=== PATIENT | male | born 1990 | race Hispanic/Latino ===

== ENCOUNTER 2017-03-31 18:15 | Emergency (ER) | payer SELFPAY ==
[2017-03-31 18:34] VITALS: BMI 22.3
--- NOTE | 2017-03-31 18:38 | ED PDOC ---
Arrival/HPI - General Chief Complaint: Psychiatric Evaluation Time Seen by Provider: 03/31/17 18:28 Historian: Patient, Police - History of Present Illness Time/Duration: Prior to Arrival Symptom Onset: Gradual Symptom Course: Unchanged Associated Symptoms (Text): 03/31/17 18:36 Patient reports that he stole from his roommate and was afraid to go back to his house and was drinking and sending email to his aunt in [place] with suicidal intentions. The aunt called the local police who brought him to the emergency department. Patient was drinking again today. He states that he did this for attention, but has no intention of hurting himself. Family/Social History - Physician Review Nursing Documentation Reviewed: Yes Family/Social History: Unknown Family HX Smoking Status: Heavy Smoker > 10 Cigarettes Daily Hx Alcohol Use: Yes Hx Substance Use: No Allergies/Home Meds Allergies/Adverse Reactions: Allergies No Known Allergies Allergy (Verified 03/31/17 18:31) Home Medications: Home Meds Medication Instructions Recorded Confirmed No Known Home Med 03/31/17 03/31/17 Review of Systems - Physician Review All systems were reviewed & negative as marked: Yes - Review of Systems Constitutional: Normal Respiratory: Normal Cardiovascular: Normal Gastrointestinal: Normal Physical Exam Vital Signs Pulse Resp BP Pulse Ox 03/31/17 20:16 80 18 144/91 H 97 Temperature: Afebrile Blood Pressure: Normal Pulse: Regular Respiratory Rate: Normal Appearance: Positive for: Well-Appearing, Non-Toxic, Comfortable, Other (Smells of alcohol) Pain Distress: None Mental Status: Positive for: Alert and Oriented X 3 - Systems Exam Head: Present: Atraumatic, Normocephalic Pupils: Present: PERRL Extroacular Muscles: Present: EOMI Conjunctiva: Present: Normal Mouth: Present: Moist Mucous Membranes Pharnyx: No: ERYTHEMA, EXUDATE, TONSILS ENLARGED Neck: Present: Normal Range of Motion Respiratory/Chest: Present: Clear to Auscultation, Good Air Exchange. No: Respiratory Distress, Accessory Muscle Use Cardiovascular: Present: Regular Rate and Rhythm, Normal S1, S2. No: Murmurs Abdomen: Present: Normal Bowel Sounds. No: Tenderness, Distention, Peritoneal Signs Back: Present: Normal Inspection Upper Extremity: Present: Normal Inspection. No: Cyanosis, Edema Lower Extremity: Present: Normal Inspection. No: Edema Neurological: Present: GCS=15, CN II-XII Intact, Speech Normal, Motor Func Grossly Intact Skin: Present: Warm, Dry, Normal Color. No: Rashes Psychiatric: Present: Alert, Oriented x 3, Normal Insight, Normal Concentration , Depressed Mood, Intoxicated Medical Decision Making ED Course and Treatment: 03/31/17 20:05 EKG shows normal sinus rhythm rate approximately [address] or T-wave changes 03/31/17 22:21 Care of this patient was endorsed to the night emergency department physician , waiting for crisis evaluation and final disposition 03/31/17 22:27 Crisis has finished his evaluation and spoke with the psychiatrist and he will be discharged home to follow-up as an outpatient with substance abuse as the diagnosis. - Lab Interpretations Lab Results: 03/31/17 19:00 03/31/17 19:00 Lab Results 03/31/17 19:00: Alcohol, Quantitative 191 H 03/31/17 19:00: Salicylates < 1 L, Acetaminophen < 10.0 L 03/31/17 19:00: Sodium 143, Potassium 4.0, Chloride 104, Carbon Dioxide 23, Anion Gap 20, BUN 10, Creatinine 0.9, Est GFR ( Amer) > 60, Est GFR (Non- Af Amer) > 60, Random Glucose 88, Calcium 9.7, Total Bilirubin 0.5, AST 37, ALT 39, Alkaline Phosphatase 88, Total Protein 8.2, Albumin 4.8, Globulin 3.4, Albumin/Globulin Ratio 1.4 03/31/17 19:00: WBC 6.7, RBC 5.04, Hgb 16.6, Hct 45.3, MCV 89.9, MCH 32.9, MCHC 36.6, RDW 12.1, Plt Count 228, MPV 9.5, Gran % 63.7, Lymph % (Auto) 25.0, Dickinson % (Auto) 8.6 H, Eos % (Auto) 2.1, Baso % (Auto) 0.6, Gran # 4.29, Lymph # 1.7, Dickinson # 0.6, Eos # 0.1, Baso # 0.04 - RAD Interpretation Radiology Orders: 03/31/17 18:35 CHEST PORTABLE [RAD] Stat Disposition/Present on Arrival - Present on Arrival Any Indicators Present on Arrival: No History of DVT/PE: No History of Uncontrolled Diabetes: No Urinary Catheter: No History of Decub. Ulcer: No - Disposition Have Diagnosis and Disposition been Completed?: Yes Diagnosis: Substance abuse Disposition: HOME/ ROUTINE Disposition Time: 22:28 Patient Plan: Discharge Condition: GOOD Discharge Instructions (ExitCare): Abuse of Alcohol (ED), Polysubstance Abuse ( ED) Referrals: PCP,NO [Primary Care Provider] - Follow up with primary
[2017-03-31 19:21] LABS: BASO # 0.04 K/mm3 (0.0-2.0); BASO % 0.6 % (0.0-3.0); EOS # 0.1 (0.0-0.7); EOS % 2.1 % (1.5-5.0); GRAN # 4.29 (1.4-6.5); GRAN % 63.7 % (50.0-68.0); HEMOGLOBIN 16.6 gm/dL (14.0-18.0); LYMPH # 1.7 (1.2-3.4); MEAN CELL VOLUME 89.9 fL (80.0-105.0); MEAN CORPUSCULAR HEMOGLOBIN 32.9 pg (25.0-35.0); MEAN CORPUSCULAR HGB CONC 36.6 g/dl (31.0-37.0); MEAN PLATELET VOLUME 9.5 fl (7.0-11.0); MONO # 0.6 (0.1-0.6); MONO % 8.6 % (1.0-6.0); PLATELET COUNT 228 10^3/uL (120.0-450.0); RBC 5.04 10^6/uL (3.5-6.1); RED CELL DISTRIBUTION WIDTH 12.1 % (11.5-14.5); WHITE BLOOD COUNT 6.7 10^3/ul (4.5-11.0)
[2017-03-31 19:32] LABS: ALB/GLOB RATIO 1.4 (1.1-1.8); ALBUMIN 4.8 g/dL (3.0-4.8); ALT/SGPT 39 U/L (7-56); AST/SGOT 37 U/L (15-59); BLOOD UREA NITROGEN 10 mg/dL (7-21); CALCIUM 9.7 mg/dL (8.4-10.5); GFR AFRICAN-AMERICAN > 60; GFR NON-AFRICAN AMERICAN > 60; SALICYLATE < 1 mg/dL (2.0-20.0)
[2017-03-31 19:38] LABS: ACETAMINOPHEN < 10.0 ug/ml (10.0-20.0)
[2017-03-31 20:46] VITALS: BP 144/91; PULSE 80; RESP 18; O2SAT 97
[2017-03-31 22:36] LABS: PH,URINE 6.5 (4.7-8.0); URINE BILIRUBIN NEGATIVE (NEGATIVE); URINE BLOOD NEGATIVE (NEGATIVE); URINE GLUCOSE (UA) NEGATIVE (NEGATIVE); URINE LEUKOCYTE ESTERASE NEGATIVE Leu/uL (NEGATIVE); URINE NITRATE NEGATIVE (NEGATIVE); URINE PROTEIN NEGATIVE mg/dL (<30 mg/dL); URINE UROBILINOGEN 0.2 E.U./dL (<1 E.U./dL)
[2017-03-31 22:47] LABS: BARBITURATES, UR NEGATIVE (NEGATIVE); BENZODIAZEPINES, UR NEGATIVE (NEGATIVE); OPIATES, UR NEGATIVE (NEGATIVE); PHENCYCLIDINE, UR NEGATIVE (NEGATIVE)
[2017-03-31 22:49] LABS: URINE APPEARANCE CLEAR (CLEAR); URINE COLOR YELLOW (YELLOW)
--- NOTE | 2017-04-01 08:30 | RAD ---
HISTORY: PES COMPARISON: No prior. FINDINGS: LUNGS: No active pulmonary disease. PLEURA: No significant pleural effusion identified, no pneumothorax apparent. CARDIOVASCULAR: Normal. OSSEOUS STRUCTURES: No significant abnormalities. VISUALIZED UPPER ABDOMEN: Normal. OTHER FINDINGS: None. IMPRESSION: No active disease.
--- NOTE | 2017-04-01 23:56 | CARD ---
APPROVED REPORT EKG Measurement Heart [id number] <Conclusion> Normal sinus rhythm Possible Left atrial enlargement Borderline ECG
== END 2017-03-31 23:09 | disposition home or self-care (01) ==
LOC: ED 18:15
DX: F19.10 Other psychoactive substance abuse, uncomplicated (principal)
CPT/HCPCS: 71010; 80053; 81003; 85025; 90791; 93005; 99283; G0480